=== PATIENT | male | born 1995 | race Caucasian/White ===

== ENCOUNTER 2016-11-30 17:01 | Emergency (ER) | payer SELFPAY ==
[~2016-11-30] VITALS: Ht 188 cm; Wt 103.5 kg
[~2016-11-30 17:01] MED LIST: IBUP400T PO; NONE PER PT; OXYC-229 PO
[2016-11-30 18:56] VITALS: BP 144/79
== END 2016-11-30 19:00 | disposition home or self-care (01) ==
LOC: ED 18:54
DX: S16.1XXA Strain of muscle, fascia and tendon at neck level, initial encounter (principal); S09.90XA Unspecified injury of head, initial encounter; V44.5XXA Car driver injured in collision with heavy transport vehicle or bus in traffic accident, initial encounter; Y93.89 Activity, other specified; Y92.410 Unspecified street and highway as the place of occurrence of the external cause; Y99.9 Unspecified external cause status
CPT/HCPCS: 70450; 72125; 99284

== ENCOUNTER 2017-08-06 21:35 | Emergency (ER) | payer MEDICAID ==
[~2017-08-06] VITALS: Ht 185.4 cm; Wt 94.9 kg
[~2017-08-06 21:35] MED LIST changes: +IBUP-1221 PO; -IBUP400T PO; -OXYC-229 PO; +OXYC-307 PO
[2017-08-06 21:40] VITALS: BP 141/76
== END 2017-08-06 23:13 | disposition home or self-care (01) ==
LOC: ED 22:33
DX: S93.491A Sprain of other ligament of right ankle, initial encounter (principal); X50.1XXA Overexertion from prolonged static or awkward postures, initial encounter; Y93.67 Activity, basketball; Y99.8 Other external cause status; Y92.89 Other specified places as the place of occurrence of the external cause
CPT/HCPCS: 99284

== ENCOUNTER 2018-02-15 22:12 | Emergency (ER) | payer MEDICAID ==
[~2018-02-15] VITALS: Ht 188 cm; Wt 100.4 kg
[2018-02-15 22:15] VITALS: BP 123/72
[2018-02-15] MEDS ORDERED: DEXAMETHASONE 4 MG TABLET PO STA (22:34)
[2018-02-15] MEDS ORDERED: DEXAMETHASONE 4 MG TABLET ONE (22:35)
== END 2018-02-15 22:49 | disposition home or self-care (01) ==
LOC: ED 22:43
DX: J02.0 Streptococcal pharyngitis (principal); J45.909 Unspecified asthma, uncomplicated
CPT/HCPCS: 99283

== ENCOUNTER 2018-04-23 22:26 | Emergency (ER) | payer MEDICAID ==
[~2018-04-23] VITALS: Ht 185.4 cm; Wt 100.0 kg
[2018-04-23 23:10] VITALS: BP 148/76
[2018-04-23] MEDS ORDERED: HYDROcodone/APAP 5/325 TABLET PO ONE (23:30)
[2018-04-23] MEDS ORDERED: HYDROcodone/APAP 5/325 TABLET ONE (23:32)
== END 2018-04-24 00:03 | disposition home or self-care (01) ==
LOC: ED 23:10
DX: S83.91XA Sprain of unspecified site of right knee, initial encounter (principal); J45.909 Unspecified asthma, uncomplicated; X58.XXXA Exposure to other specified factors, initial encounter; Y93.67 Activity, basketball; Y92.89 Other specified places as the place of occurrence of the external cause; Y99.8 Other external cause status
CPT/HCPCS: 99284

== ENCOUNTER 2018-08-17 12:40 | Emergency (ER) | payer MEDICAID ==
[~2018-08-17] VITALS: Ht 188 cm; Wt 100.3 kg
[2018-08-17 12:46] VITALS: BP 136/95
[2018-08-17] MEDS ORDERED: DEXAMETHASONE 4 MG TABLET ONE (12:57)
[2018-08-17] MEDS ORDERED: DEXAMETHASONE 4 MG TABLET PO ONE (13:00)
== END 2018-08-17 13:58 | disposition home or self-care (01) ==
LOC: ED 13:40
DX: J00 Acute nasopharyngitis [common cold] (principal)
CPT/HCPCS: 71046; 99283

== ENCOUNTER 2018-09-18 09:27 | Emergency (ER) | payer MEDICAID ==
[~2018-09-18] VITALS: Ht 188 cm; Wt 106.3 kg
[2018-09-18] MEDS ORDERED: DEXAMETHASONE 4 MG/ML, 1ML ONE (10:24)
[2018-09-18] MEDS ORDERED: DEXAMETHASONE 4 MG/ML, 1ML PO ONE (10:30)
[2018-09-18 10:39] VITALS: BP 123/77
[2018-09-18] MEDS ORDERED: BICILLIN-LA 1,200,000 UNITS/2 ML IM ONE (11:00)
== END 2018-09-18 10:42 | disposition home or self-care (01) ==
LOC: ED 10:24
DX: J03.00 Acute streptococcal tonsillitis, unspecified (principal)
CPT/HCPCS: 96372; 99283; J0561; J1100

== ENCOUNTER 2018-10-18 09:29 | Emergency (ER) | payer MEDICAID ==
[~2018-10-18] VITALS: Ht 188 cm; Wt 110.0 kg
[2018-10-18 09:42] VITALS: BP 131/85
[2018-10-18] MEDS ORDERED: DEXAMETHASONE 4 MG TABLET PO ONE (10:30)
[2018-10-18] MEDS ORDERED: DEXAMETHASONE 4 MG TABLET ONE (10:41)
== END 2018-10-18 10:54 | disposition home or self-care (01) ==
LOC: ED 10:18
DX: J02.0 Streptococcal pharyngitis (principal)
CPT/HCPCS: 99283

== ENCOUNTER 2019-01-15 19:04 | Emergency (ER) | payer MEDICAID ==
[~2019-01-15] VITALS: Ht 185.4 cm; Wt 111.4 kg
[2019-01-15 19:06] VITALS: BP 131/70
== END 2019-01-15 19:50 | disposition home or self-care (01) ==
LOC: ED 19:21
DX: M25.561 Pain in right knee (principal); J45.909 Unspecified asthma, uncomplicated
CPT/HCPCS: 99283

== ENCOUNTER 2020-03-26 19:29 | Emergency (ER) | payer MEDICAID ==
[~2020-03-26] VITALS: Ht 188 cm; Wt 119.7 kg
--- NOTE | 2020-03-26 20:06 | NUR ---
FOURCHETTE SEWER: EKG DONE IN TRIAGE.
--- NOTE | 2020-03-26 20:23 | NUR ---
THIS IS A 24 YO MALE COMING IN FOR INCREASED SOB AND FEVER FOR THE PAST COUPLE DAYS, PATIENT HAS BEEN QUARANTINING AT HOME WITH SISTER WHO IS COVID + (TESTED POSITIVE 10 DAYS AGO). PATIENT HS SAME SX EARLY DECEMBER AND QUARANTINED AT HOME, STATES SAME SX NOW. PATIENT STATES HIGHEST FEVER AT HOME WAS 101.8, CONTROLLED WITH TYLENOL Q6 HOURS. AFEBRILE HERE, LAST DOSE TYLENOL AT 1600. MONITORING IN PLACE, VSS, SPO2 AT 94% ON RA. CALL LIGHT IN REACH. ERP TO ROOM FOR EVAL
[2020-03-26 20:43] LABS: BASOPHILS % (AUTO) 0 % (0-1); EOSINOPHILS % (AUTO) 0 % (1-7); LYMPHOCYTES # (AUTO) 0.85 x10^3/uL (1-3.4); LYMPHOCYTES % (AUTO) 16 % (22-44); MD NO; MEAN CORPUSCULAR HEMOGLOBIN 27.2 pg (27.5-34.5); MEAN CORPUSCULAR HGB CONC 33.3 g/dL (33.2-36.2); MONOCYTES # (AUTO) 0.17 x10^3/uL (0.2-0.8); MONOCYTES % (AUTO) 3 % (2-9); NEUTROPHILS # (AUTO) 4.16 x10^3/uL (1.8-6.8); NEUTROPHILS % (AUTO) 80 % (42-75); PLATELET COUNT 194 x10^3/uL (130-400); RED BLOOD COUNT 4.98 x10^6/uL (4.38-5.82); RED CELL DISTRIBUTION WIDTH 13.5 % (9.4-14.8)
[2020-03-26 20:54] LABS: ALANINE AMINOTRANSFERASE 31 U/L (12-78); ALBUMIN 3.6 g/dL (3.4-5.0); ANION GAP 7 mmol/L (5-15); CALCIUM 8.2 mg/dL (8.5-10.1); CHLORIDE 104 mmol/L (98-107); CREATININE 1.29 mg/dL (0.7-1.3)
[2020-03-26 20:59] LABS: ALKALINE PHOSPHATASE 111 U/L (45-117); BILIRUBIN,TOTAL 0.5 mg/dL (0.2-1.0); TOTAL PROTEIN 7.5 g/dL (6.4-8.2); TROPONIN I < 0.015 ng/mL (0.000-0.045)
--- NOTE | 2020-03-26 21:45 | NUR ---
ERP IN ROOM FOR RECHECK
[2020-03-26 22:10] VITALS: BP 124/81
[2020-03-26] MEDS ORDERED: ACETAMINOPHEN 500 MG TABLET ONE (22:23)
--- NOTE | 2020-03-26 22:27 | NUR ---
PATIENT MEDICATED PER EMAR
[2020-03-26] MEDS ORDERED: ACETAMINOPHEN 500 MG TABLET PO ONE (22:30)
--- NOTE | 2020-03-26 23:02 | NUR ---
Patient given discharge instructions and they have confirmed that they understand the instructions. Patient ambulatory with steady gait.
== END 2020-03-26 23:04 | disposition home or self-care (01) ==
LOC: ED 22:45
DX: R07.89 Other chest pain (principal); R50.9 Fever, unspecified; M79.10 Myalgia, unspecified site; R00.0 Tachycardia, unspecified; J45.909 Unspecified asthma, uncomplicated; Z87.891 Personal history of nicotine dependence
CPT/HCPCS: 36415; 71045; 80053; 84484; 85025; 93005; 99285